=== PATIENT | female | born 1930 | race Caucasian/White ===

== ENCOUNTER 2017-06-23 08:07 | Inpatient (IN) ==
[2017-06-23] MEDS ORDERED: SODIUM CHLORIDE 0.9% 1,000 ML IV STA (08:56)
[2017-06-23 09:52] LABS: Basophils # 0.1 10*3/uL (0.0-0.2); Basophils % 0.2 % (0.0-0.8); Hematocrit 30.6 VOL% (35.7-47.0); Hemoglobin 10.6 GM/DL (12.0-16.0); Immature Granulocytes % 1.6 %; Immature Granulocytes Absolute 0.35 #; Lymphocytes # 0.8 10*3/uL (1.4-4.0); Lymphocytes % 3.4 % (21.3-54.2); Mean Corpuscular HGB Conc 34.6 GM/DL (32-36); Mean Corpuscular Hemoglobin 32 PG (27-34); Mean Corpuscular Volume 91.1 FL (87-102); Mean Platelet Volume 8.6 FL (9.6-12.0); Monocytes # 1.4 10*3/uL (0.11-0.8); Monocytes % 6.5 % (1.7-12.7); Neutrophils # 19.6 10*3/uL (1.4-7.4); Neutrophils % 88.3 % (38.7-73.9); Platelet Count 280 T/CUMM (130-400); Red Blood Count 3.36 MC/CUMM (3.8-5.5); Red Cell Distribution Width 14.9 % (9.3-17.3); White Blood Count 22.2 T/CUMM (4-12)
[2017-06-23 10:04] LABS: INR 1.1; PT Patient Result 11.8 SECS; Partial Thromboplastin Time 31.1 SECS (0-40)
[2017-06-23 10:12] LABS: Apearance,Urine Slightly Hazy (Clear); Bacteria,Urine Few /HPF (Few); Bilirubin,Urine Negative (Negative); Blood, Urine Negative (Negative); Glucose,Urine (UA) Negative (Negative); Ketones,Urine Negative (Negative); Mucus,Urine Occasional /LPF (Occasional); Nitrite,Urine Positive (Negative); Protein,Urine 30 MG/DL; RBC,Urine 2 /HPF (0-4); Squamous Epithelial Cell,Urine Occasional /HPF (0-10); Urine Color Yellow (Yellow); Urine Specific Gravity 1.008 (1.001-1.035); Urine Urobilinogen < 2.0 EU/DL (0.2-1.0); WBC,Urine 68 /HPF (0-6)
[2017-06-23 10:23] LABS: Albumin 3.4 G/DL (3.4-5.0); Bilirubin,Total 0.6 MG/DL (0.2-1.0); Calcium 8.5 MG/DL (8.5-10.1); Osmolality,Calculated 268.2 MOS/KG (273-304); Potassium 3.3 MMOL/L (3.5-5.1); Total Protein 6.7 G/DL (6.4-8.3)
[2017-06-23 11:17] LABS: Band Neutrophils 8 % (0-10); Hypochromasia 1+; Lymphocytes 5 % (20-55); Platelet Estimate Normal; Segmented Neutrophils 83 % (50-85); Total Cells Counted 100
[2017-06-23 11:18] LABS: Microcytosis 1+
[2017-06-23] MEDS ORDERED: LEVOFLOXACIN INJ 500 MG in PREMIX 1 EACH IV STA (11:23)
[2017-06-23] MEDS ORDERED: LEVOFLOXACIN INJ 100 ML IV ONE (11:26)
[2017-06-23] MEDS ORDERED: oxyCODONE/ACETAMINOPHEN 5-325 MG TABLET ONE (12:44)
[2017-06-23] MEDS ORDERED: oxyCODONE/ACETAMINOPHEN 5-325 MG TABLET PO STA (12:45)
[2017-06-23] MEDS ORDERED: ACETAMINOPHEN 325 MG TABLET PO PRN (14:08)
[2017-06-23] MEDS ORDERED: ONDANSETRON 4 MG/2 ML VIAL IV PRN (14:08)
[2017-06-23] MEDS: SODIUM CHLORIDE 0.9% 1,000 ML IV SCH ×2 (14:24→22:12)
[2017-06-23] MEDS ORDERED: ACETAMINOPHEN 650 MG SUPP RECTAL ONE ×2 (17:59→18:32)
[2017-06-23] MEDS ORDERED: POTASSIUM CHLORIDE RIDER 10 MEQ in PREMIX 1 EACH IV PRN (18:20)
[2017-06-23] MEDS ORDERED: METOPROLOL TARTRATE 5 MG/5 ML VIAL IV ONE (18:51)
[2017-06-23] MEDS ORDERED: DILTIAZEM 100 MG VIAL.ADD IV ONE (18:55)
[2017-06-23] MEDS ORDERED: SODIUM CHLORIDE 0.9% 100 ML IV ONE (18:56)
[2017-06-23] MEDS: methylPREDNISolone SOD SUC 40 MG/1 ML VIAL IV SCH (19:00)
[2017-06-23] MEDS: DILTIAZEM INJ 100 MG in SODIUM CHLORIDE 0.9% 100 ML IV SCH (19:01)
[2017-06-23] MEDS: KETOROLAC 15 MG/1 ML VIAL IV PRN (19:01)
[2017-06-23] MEDS: ALBUTEROL/IPRATROPIUM 3 ML NEB RESP TX SCH (21:15)
[2017-06-23] MEDS: DOCUSATE SODIUM 100 MG CAPSULE PO SCH (22:11)
[2017-06-23] MEDS: METOPROLOL TARTRATE 5 MG/5 ML VIAL IV SCH (22:11)
[2017-06-24] MEDS: ALBUTEROL/IPRATROPIUM 3 ML NEB RESP TX SCH ×6 (00:07→19:12)
[2017-06-24] MEDS: METOPROLOL TARTRATE 5 MG/5 ML VIAL IV SCH ×7 (01:51→22:59)
[2017-06-24] MEDS: LEVOFLOXACIN INJ 500 MG in PREMIX 1 EACH IV SCH (09:05)
[2017-06-24] MEDS: PANTOPRAZOLE 40 MG TABLET PO SCH (09:30)
[2017-06-24] MEDS: CARVEDILOL 25 MG TABLET PO SCH ×2 (09:30→17:32)
[2017-06-24] MEDS: DOCUSATE SODIUM 100 MG CAPSULE PO SCH ×2 (09:30→20:11)
[2017-06-24 09:56] LABS: Calcium 7.6 MG/DL (8.5-10.1); Osmolality,Calculated 276.1 MOS/KG (273-304); Potassium 3.2 MMOL/L (3.5-5.1)
[2017-06-24 10:02] LABS: Basophils # 0.1 10*3/uL (0.0-0.2); Basophils % 0.2 % (0.0-0.8); Hematocrit 28.5 VOL% (35.7-47.0); Hemoglobin 9.7 GM/DL (12.0-16.0); Lymphocytes % 3.3 % (21.3-54.2); Mean Corpuscular Hemoglobin 31 PG (27-34); Mean Corpuscular Volume 92.2 FL (87-102); Mean Platelet Volume 9.1 FL (9.6-12.0); Monocytes # 1.2 10*3/uL (0.11-0.8); Neutrophils # 24.9 10*3/uL (1.4-7.4); Neutrophils % 83.5 % (38.7-73.9); Platelet Count 217 T/CUMM (130-400); Red Blood Count 3.09 MC/CUMM (3.8-5.5); Red Cell Distribution Width 15.5 % (9.3-17.3); White Blood Count 29.9 T/CUMM (4-12)
[2017-06-24] MEDS: SODIUM CHLORIDE 0.9% 1,000 ML IV SCH ×2 (10:14→16:21)
[2017-06-24 10:54] LABS: Acanthocytes Few; Band Neutrophils 14 % (0-10); Hypochromasia 1+; Lymphocytes 3 % (20-55); Platelet Estimate Adequate; Segmented Neutrophils 82 % (50-85); Total Cells Counted 100
[2017-06-24] MEDS: PIPERACILLIN/TAZOBACTAM 3,375 MG in SODIUM CHLORIDE 0.9% 100 ML IV SCH ×2 (11:28→20:11)
[2017-06-24] MEDS: methylPREDNISolone SOD SUC 40 MG/1 ML VIAL IV SCH ×2 (18:35→19:31)
[2017-06-24] MEDS: DILTIAZEM INJ 100 MG in SODIUM CHLORIDE 0.9% 100 ML IV SCH (19:31)
[2017-06-24] MEDS: KETOROLAC 15 MG/1 ML VIAL IV PRN (20:11)
[2017-06-25] MEDS: ALBUTEROL/IPRATROPIUM 3 ML NEB RESP TX SCH ×8 (00:05→23:36)
[2017-06-25] MEDS ORDERED: cloNIDine 0.1 MG TABLET PO ONE (00:38)
[2017-06-25] MEDS: METOPROLOL TARTRATE 5 MG/5 ML VIAL IV SCH ×5 (02:45→17:25)
[2017-06-25] MEDS: SODIUM CHLORIDE 0.9% 1,000 ML IV SCH ×3 (03:43→14:17)
[2017-06-25] MEDS: PIPERACILLIN/TAZOBACTAM 3,375 MG in SODIUM CHLORIDE 0.9% 100 ML IV SCH (05:30)
[2017-06-25] MEDS ORDERED: POTASSIUM CHLORIDE 20 MEQ TABLET PO PRN (05:57)
[2017-06-25] MEDS ORDERED: POTASSIUM CHLORIDE 20 MEQ TABLET PO ONE (05:57)
[2017-06-25] MEDS ORDERED: hydrALAZINE 20 MG/1 ML VIAL IV PRN (06:03)
[2017-06-25] MEDS: methylPREDNISolone SOD SUC 40 MG/1 ML VIAL IV SCH ×2 (06:08→17:35)
[2017-06-25 06:51] LABS: Basophils % 0.1 % (0.0-0.8); Hematocrit 27.1 VOL% (35.7-47.0); Hemoglobin 9.1 GM/DL (12.0-16.0); Immature Granulocytes % 2.3 %; Immature Granulocytes Absolute 0.42 #; Lymphocytes # 0.8 10*3/uL (1.4-4.0); Lymphocytes % 4.5 % (21.3-54.2); Mean Corpuscular HGB Conc 33.6 GM/DL (32-36); Mean Corpuscular Hemoglobin 31 PG (27-34); Mean Corpuscular Volume 91.2 FL (87-102); Mean Platelet Volume 9.7 FL (9.6-12.0); Monocytes # 0.4 10*3/uL (0.11-0.8); Monocytes % 2.4 % (1.7-12.7); Neutrophils # 16.4 10*3/uL (1.4-7.4); Neutrophils % 90.7 % (38.7-73.9); Platelet Count 196 T/CUMM (130-400); Red Blood Count 2.97 MC/CUMM (3.8-5.5); Red Cell Distribution Width 15.8 % (9.3-17.3)
[2017-06-25 07:21] LABS: Albumin 2.9 G/DL (3.4-5.0); Bilirubin,Total 0.7 MG/DL (0.2-1.0); Calcium 8.3 MG/DL (8.5-10.1); Magnesium 2.3 MG/DL (1.8-2.4); Potassium 3.3 MMOL/L (3.5-5.1); Total Protein 6.1 G/DL (6.4-8.3)
[2017-06-25 07:42] LABS: Band Neutrophils 6 % (0-10); Lymphocytes 2 % (20-55); Segmented Neutrophils 87 % (50-85); Total Cells Counted 100
[2017-06-25 07:43] LABS: Acanthocytes Few; Hypochromasia 1+; Microcytosis 1+; Ovalocytes Slight; Platelet Estimate Adequate
[2017-06-25] MEDS: DOCUSATE SODIUM 100 MG CAPSULE PO SCH ×2 (08:28→23:02)
[2017-06-25] MEDS: hydrALAZINE 25 MG TABLET PO SCH ×4 (08:28→23:03)
[2017-06-25] MEDS: CARVEDILOL 25 MG TABLET PO SCH ×2 (08:28→17:25)
[2017-06-25] MEDS: PANTOPRAZOLE 40 MG TABLET PO SCH (08:28)
[2017-06-25] MEDS: LEVOFLOXACIN INJ 500 MG in PREMIX 1 EACH IV SCH (08:29)
[2017-06-25] MEDS ORDERED: LOSARTAN 25 MG TABLET PO SCH (09:00)
[2017-06-25] MEDS ORDERED: LEVOFLOXACIN INJ 750 MG in PREMIX 1 EACH IV SCH (11:30)
[2017-06-25 12:01] LABS: 25 Hydroxy Vitamin D Total 31.8 NG/ML
[2017-06-25] MEDS: ESTRADIOL 1 MG TABLET PO SCH (12:11)
[2017-06-25] MEDS: traZODone 50 MG TABLET PO SCH (23:02)
[2017-06-25] MEDS: cloNIDine 0.1 MG TABLET PO SCH (23:02)
[2017-06-25] MEDS: ZINC OXIDE PASTE 113 GM TUBE TOP SCH (23:03)
[2017-06-26] MEDS: ALBUTEROL/IPRATROPIUM 3 ML NEB RESP TX SCH ×5 (02:13→20:20)
[2017-06-26 02:26] LABS: Basophils % 0.1 % (0.0-0.8); Hematocrit 27.1 VOL% (35.7-47.0); Hemoglobin 9.4 GM/DL (12.0-16.0); Immature Granulocytes % 2.3 %; Immature Granulocytes Absolute 0.37 #; Lymphocytes # 0.9 10*3/uL (1.4-4.0); Lymphocytes % 5.3 % (21.3-54.2); Mean Corpuscular HGB Conc 34.7 GM/DL (32-36); Mean Corpuscular Hemoglobin 31 PG (27-34); Mean Corpuscular Volume 89.4 FL (87-102); Mean Platelet Volume 9.9 FL (9.6-12.0); Monocytes # 0.3 10*3/uL (0.11-0.8); Neutrophils # 14.8 10*3/uL (1.4-7.4); Neutrophils % 90.3 % (38.7-73.9); Platelet Count 252 T/CUMM (130-400); Red Blood Count 3.03 MC/CUMM (3.8-5.5); Red Cell Distribution Width 15.7 % (9.3-17.3); White Blood Count 16.4 T/CUMM (4-12)
[2017-06-26 02:53] LABS: Calcium 8.4 MG/DL (8.5-10.1); Potassium 3.5 MMOL/L (3.5-5.1)
[2017-06-26 02:56] LABS: Band Neutrophils 3 % (0-10); Lymphocytes 5 % (20-55); Segmented Neutrophils 91 % (50-85)
[2017-06-26 02:58] LABS: Anisocytosis 1+; Microcytosis 1+; Ovalocytes 1+; Platelet Estimate Normal
[2017-06-26 02:59] LABS: Total Cells Counted 100
[2017-06-26] MEDS: METOPROLOL TARTRATE 5 MG/5 ML VIAL IV SCH ×2 (03:05→07:51)
[2017-06-26] MEDS: SODIUM CHLORIDE 0.9% 1,000 ML IV SCH ×3 (05:30→18:06)
[2017-06-26] MEDS: methylPREDNISolone SOD SUC 40 MG/1 ML VIAL IV SCH ×2 (07:52→18:05)
[2017-06-26] MEDS ORDERED: LEVOFLOXACIN INJ 750 MG in PREMIX 1 EACH IV SCH (09:00)
[2017-06-26] MEDS: ESTRADIOL 1 MG TABLET PO SCH (09:37)
[2017-06-26] MEDS: PANTOPRAZOLE 40 MG TABLET PO SCH (09:38)
[2017-06-26] MEDS: CARVEDILOL 25 MG TABLET PO SCH ×2 (09:38→18:05)
[2017-06-26] MEDS: ZINC OXIDE PASTE 113 GM TUBE TOP SCH ×2 (09:38→22:01)
[2017-06-26] MEDS: hydrALAZINE 25 MG TABLET PO SCH ×3 (09:38→22:01)
[2017-06-26] MEDS: DOCUSATE SODIUM 100 MG CAPSULE PO SCH ×2 (09:38→22:01)
[2017-06-26] MEDS: POTASSIUM CHLORIDE 10 MEQ TABLET PO SCH (09:42)
[2017-06-26] MEDS ORDERED: GABAPENTIN 100 MG CAPSULE PO ONE (09:53)
[2017-06-26] MEDS ORDERED: traMADol 50 MG TABLET PO ONE (09:54)
[2017-06-26] MEDS: cloNIDine 0.1 MG TABLET PO SCH (22:01)
[2017-06-26] MEDS: traZODone 50 MG TABLET PO SCH (22:01)
[2017-06-26] MEDS: oxyCODONE/ACETAMINOPHEN 5-325 MG TABLET PO PRN (22:02)
[2017-06-27] MEDS: ALBUTEROL/IPRATROPIUM 3 ML NEB RESP TX SCH ×4 (00:04→13:15)
[2017-06-27] MEDS: SODIUM CHLORIDE 0.9% 1,000 ML IV SCH ×2 (02:32→09:26)
[2017-06-27] MEDS: methylPREDNISolone SOD SUC 40 MG/1 ML VIAL IV SCH (05:31)
[2017-06-27 06:48] LABS: Basophils % 0.1 % (0.0-0.8); Eosinophils # 0.1 10*3/uL (0.0-0.87); Eosinophils % 0.5 % (0.00-10.9); Hematocrit 25.6 VOL% (35.7-47.0); Hemoglobin 8.7 GM/DL (12.0-16.0); Immature Granulocytes % 1.3 %; Immature Granulocytes Absolute 0.12 #; Lymphocytes # 1.5 10*3/uL (1.4-4.0); Mean Corpuscular Hemoglobin 31 PG (27-34); Mean Corpuscular Volume 91.4 FL (87-102); Mean Platelet Volume 9.5 FL (9.6-12.0); Monocytes # 0.5 10*3/uL (0.11-0.8); Monocytes % 5.9 % (1.7-12.7); NRBC # 0.02 10*3/uL; Neutrophils # 6.9 10*3/uL (1.4-7.4); Neutrophils % 76.2 % (38.7-73.9); Platelet Count 253 T/CUMM (130-400); White Blood Count 9.1 T/CUMM (4-12)
[2017-06-27 07:09] LABS: Calcium 8.1 MG/DL (8.5-10.1); Osmolality,Calculated 275.7 MOS/KG (273-304); Potassium 3.5 MMOL/L (3.5-5.1)
[2017-06-27] MEDS ORDERED: LEVOFLOXACIN 750 MG TABLET PO SCH (09:00)
[2017-06-27] MEDS ORDERED: ZINC OXIDE 16% PASTE 57 GM TUBE TOP PRN (09:13)
[2017-06-27] MEDS: oxyCODONE/ACETAMINOPHEN 5-325 MG TABLET PO PRN (09:19)
[2017-06-27] MEDS: ESTRADIOL 1 MG TABLET PO SCH (09:21)
[2017-06-27] MEDS: CARVEDILOL 25 MG TABLET PO SCH (09:23)
[2017-06-27] MEDS: DOCUSATE SODIUM 100 MG CAPSULE PO SCH (09:23)
[2017-06-27] MEDS: POTASSIUM CHLORIDE 10 MEQ TABLET PO SCH (09:23)
[2017-06-27] MEDS: hydrALAZINE 25 MG TABLET PO SCH (09:23)
[2017-06-27] MEDS: PANTOPRAZOLE 40 MG TABLET PO SCH (09:23)
[2017-06-27] MEDS: ZINC OXIDE PASTE 113 GM TUBE TOP SCH (09:24)
[2017-06-27] MEDS ORDERED: GABAPENTIN 100 MG CAPSULE PO SCH (11:30)
[2017-06-27 11:47] VITALS: BP 143/76
== END 2017-06-27 14:45 | disposition home health service (06) | DRG 872 ==
LOC: EDBD → EDUNIT# → N.ED 08:07 → N.EDINP 12:44 → N.5E 14:06 → N.ICU 18:49 → N.5E 06-25 15:20
PROVIDERS: ADMIT Internal Medicine; ATTEND Internal Medicine

== ENCOUNTER 2018-01-27 07:08 | Inpatient (IN) ==
[2018-01-27] MEDS ORDERED: SODIUM CHLORIDE 0.9% 1,000 ML IV STA (07:56)
[2018-01-27] MEDS ORDERED: LEVOFLOXACIN 750 MG TABLET PO STA (07:56)
[2018-01-27 08:48] LABS: Basophils % 0.1 % (0.0-0.8); Hematocrit 31.7 VOL% (35.7-47.0); Immature Granulocytes % 0.7 %; Immature Granulocytes Absolute 0.07 #; Lymphocytes # 0.4 10*3/uL (1.4-4.0); Lymphocytes % 3.6 % (21.3-54.2); Mean Corpuscular HGB Conc 34.7 GM/DL (32-36); Mean Corpuscular Hemoglobin 32 PG (27-34); Mean Corpuscular Volume 91.6 FL (87-102); Mean Platelet Volume 8.7 FL (9.6-12.0); Monocytes # 0.5 10*3/uL (0.11-0.8); Monocytes % 4.8 % (1.7-12.7); Neutrophils # 9.4 10*3/uL (1.4-7.4); Neutrophils % 90.8 % (38.7-73.9); Platelet Count 289 T/CUMM (130-400); Red Blood Count 3.46 MC/CUMM (3.8-5.5); Red Cell Distribution Width 12.9 % (9.3-17.3); White Blood Count 10.4 T/CUMM (4-12)
[2018-01-27 09:01] LABS: Apearance,Urine Slightly Hazy (Clear); Bacteria,Urine Many /HPF (Few); Bilirubin,Urine Negative (Negative); Blood, Urine Moderate mg/dL (Negative); Glucose,Urine (UA) Negative (Negative); Ketones,Urine 20 mg/dL (Negative); Mucus,Urine Occasional /LPF (Occasional); Nitrite,Urine Negative (Negative); Protein,Urine 100 MG/DL; RBC,Urine 1 /HPF (0-4); Squamous Epithelial Cell,Urine Occasional /HPF (0-10); Urine Color Yellow (Yellow); Urine Specific Gravity 1.011 (1.001-1.035); Urine Urobilinogen < 2.0 EU/DL (0.2-1.0); WBC,Urine 13 /HPF (0-6)
[2018-01-27 09:07] LABS: Band Neutrophils 1 % (0-10); Hypochromasia 1+; Lymphocytes 1 % (20-55); Ovalocytes Slight; Platelet Estimate Adequate; Segmented Neutrophils 91 % (50-85); Total Cells Counted 100
[2018-01-27 09:08] LABS: Albumin 3.7 G/DL (3.4-5.0); Bilirubin,Total 0.5 MG/DL (0.2-1.0); Calcium 8.1 MG/DL (8.5-10.1); Lactic Acid 1.2 MMOL/L (0.4-2.0); Osmolality,Calculated 259.9 MOS/KG (273-304); Potassium 3.7 MMOL/L (3.5-5.1); Total Protein 7.4 G/DL (6.4-8.3)
[2018-01-27 09:08] LABS: Microcytosis Slight
[2018-01-27] MEDS ORDERED: ACETAMINOPHEN 325 MG TABLET PO ONE (10:18)
[2018-01-27] MEDS ORDERED: ACETAMINOPHEN 325 MG TABLET ONE (10:19)
[2018-01-27] MEDS ORDERED: ACETAMINOPHEN 325 MG TABLET PO PRN (12:51)
[2018-01-27] MEDS ORDERED: SODIUM CHLORIDE 0.9% 1,000 ML IV SCH (13:00)
[2018-01-27] MEDS ORDERED: cefTRIAXone 500 MG in SYRINGE 1 EACH IV SCH (21:00)
[2018-01-27] MEDS: DOCUSATE SODIUM 100 MG CAPSULE PO SCH (21:11)
[2018-01-27] MEDS: SODIUM CHLORIDE 0.9% 1,000 ML IV SCH (21:12)
[2018-01-27] MEDS ORDERED: FUROSEMIDE 20 MG/2 ML VIAL IV ONE (22:01)
[2018-01-27] MEDS ORDERED: traZODone 50 MG TABLET PO SCH (22:15)
[2018-01-27] MEDS ORDERED: CARVEDILOL 12.5 MG TABLET PO SCH (22:30)
[2018-01-27] MEDS ORDERED: KETOROLAC 15 MG/1 ML VIAL IV ONE (22:44)
[2018-01-27] MEDS: CALCIUM (CITRATE) 200 MG TABLET PO SCH (23:56)
[2018-01-27] MEDS: busPIRone 10 MG TABLET PO SCH (23:56)
[2018-01-27] MEDS: POTASSIUM CHLORIDE 20 MEQ TABLET PO SCH (23:57)
[2018-01-27] MEDS: PREGABALIN 75 MG CAPSULE PO SCH (23:57)
[2018-01-28] MEDS: SODIUM CHLORIDE 0.9% 1,000 ML IV SCH ×2 (06:07→17:49)
[2018-01-28 07:00] LABS: Alanine Aminotransferase 37 U/L (13-56); Albumin 2.9 G/DL (3.4-5.0); Alkaline Phosphatase 62 U/L (45-117); Aspartate Amino Transferase 68 U/L (0-37); Bilirubin,Total < 0.39 MG/DL (0.2-1.0); Blood Urea Nitrogen 9 MG/DL (7-18); Calcium 8.3 MG/DL (8.5-10.1); Glucose 97 MG/DL (74-106); Osmolality,Calculated 253.2 MOS/KG (273-304); Potassium 3.2 MMOL/L (3.5-5.1); Sodium 127 MMOL/L (136-145); Total Protein 6.8 G/DL (6.4-8.3)
[2018-01-28] MEDS ORDERED: methylPREDNISolone SOD SUC 40 MG/1 ML VIAL IV ONE (07:00)
[2018-01-28] MEDS ORDERED: hydrALAZINE 25 MG TABLET PO SCH (08:00)
[2018-01-28] MEDS: PREGABALIN 75 MG CAPSULE PO SCH ×2 (10:25→20:40)
[2018-01-28] MEDS: ESTRADIOL 1 MG TABLET PO SCH (10:25)
[2018-01-28] MEDS: ASPIRIN EC 81 MG TABLET PO SCH (10:25)
[2018-01-28] MEDS: CALCIUM (CITRATE) 200 MG TABLET PO SCH ×2 (10:25→20:39)
[2018-01-28] MEDS: POTASSIUM CHLORIDE 20 MEQ TABLET PO SCH ×2 (10:25→20:40)
[2018-01-28] MEDS: DOCUSATE SODIUM 100 MG CAPSULE PO SCH ×2 (10:25→20:40)
[2018-01-28] MEDS: FUROSEMIDE 20 MG/2 ML VIAL IV SCH (12:10)
[2018-01-28] MEDS: cefTRIAXone 1,000 MG in SYRINGE 1 EACH IV SCH (12:10)
[2018-01-28] MEDS ORDERED: POTASSIUM CHLORIDE 20 MEQ TABLET PO PRN (14:55)
[2018-01-28] MEDS ORDERED: POTASSIUM CHLORIDE 20 MEQ TABLET PO ONE (14:55)
[2018-01-28 15:54] LABS: Calcium 8.4 MG/DL (8.5-10.1); Osmolality,Calculated 259.9 MOS/KG (273-304); Potassium 3.5 MMOL/L (3.5-5.1)
[2018-01-28] MEDS ORDERED: CARVEDILOL 3.125 MG TABLET PO ONE (17:30)
[2018-01-28] MEDS: ALBUTEROL/IPRATROPIUM 3 ML NEB RESP TX SCH (19:54)
[2018-01-28] MEDS: POLYETHYLENE GLYCOL POWDER 17 GM PACK PO SCH (20:39)
[2018-01-28] MEDS: busPIRone 10 MG TABLET PO SCH (20:39)
[2018-01-28] MEDS: CARVEDILOL 3.125 MG TABLET PO SCH (20:39)
[2018-01-28] MEDS ORDERED: cloNIDine 0.1 MG TABLET PO SCH (21:00)
[2018-01-28] MEDS ORDERED: FUROSEMIDE 20 MG/2 ML VIAL IV ONE (22:14)
[2018-01-29] MEDS: ALBUTEROL/IPRATROPIUM 3 ML NEB RESP TX SCH ×4 (00:47→19:50)
[2018-01-29] MEDS: SODIUM CHLORIDE 0.9% 1,000 ML IV SCH ×2 (04:45→21:25)
[2018-01-29 09:27] LABS: Calcium 8.9 MG/DL (8.5-10.1); Osmolality,Calculated 270.2 MOS/KG (273-304)
[2018-01-29] MEDS: cefTRIAXone 1,000 MG in SYRINGE 1 EACH IV SCH (10:06)
[2018-01-29] MEDS: FUROSEMIDE 20 MG/2 ML VIAL IV SCH (10:06)
[2018-01-29] MEDS: PREGABALIN 75 MG CAPSULE PO SCH ×2 (10:07→21:26)
[2018-01-29] MEDS: CALCIUM (CITRATE) 200 MG TABLET PO SCH ×2 (10:07→21:26)
[2018-01-29] MEDS: ASPIRIN EC 81 MG TABLET PO SCH (10:07)
[2018-01-29] MEDS: POLYETHYLENE GLYCOL POWDER 17 GM PACK PO SCH (10:07)
[2018-01-29] MEDS: CARVEDILOL 3.125 MG TABLET PO SCH ×2 (10:08→21:26)
[2018-01-29] MEDS: ESTRADIOL 1 MG TABLET PO SCH (10:08)
[2018-01-29] MEDS: POTASSIUM CHLORIDE 20 MEQ TABLET PO SCH ×2 (10:08→21:26)
[2018-01-29] MEDS: DOCUSATE SODIUM 100 MG CAPSULE PO SCH ×2 (10:08→21:26)
[2018-01-29] MEDS: busPIRone 10 MG TABLET PO SCH (21:26)
[2018-01-30] MEDS: ALBUTEROL/IPRATROPIUM 3 ML NEB RESP TX SCH ×4 (01:13→20:20)
[2018-01-30 05:49] LABS: Calcium 8.9 MG/DL (8.5-10.1); Osmolality,Calculated 263.7 MOS/KG (273-304); Potassium 3.8 MMOL/L (3.5-5.1)
[2018-01-30] MEDS: cefTRIAXone 1,000 MG in SYRINGE 1 EACH IV SCH (11:30)
[2018-01-30] MEDS: CALCIUM (CITRATE) 200 MG TABLET PO SCH ×2 (11:31→23:01)
[2018-01-30] MEDS: FUROSEMIDE 20 MG/2 ML VIAL IV SCH (11:31)
[2018-01-30] MEDS: ASPIRIN EC 81 MG TABLET PO SCH (11:32)
[2018-01-30] MEDS: ESTRADIOL 1 MG TABLET PO SCH (11:32)
[2018-01-30] MEDS: POTASSIUM CHLORIDE 20 MEQ TABLET PO SCH ×2 (11:32→23:01)
[2018-01-30] MEDS: CARVEDILOL 3.125 MG TABLET PO SCH ×2 (11:32→23:01)
[2018-01-30] MEDS: POLYETHYLENE GLYCOL POWDER 17 GM PACK PO SCH ×2 (11:32→12:49)
[2018-01-30] MEDS: PREGABALIN 75 MG CAPSULE PO SCH (11:32)
[2018-01-30] MEDS: DOCUSATE SODIUM 100 MG CAPSULE PO SCH ×2 (11:33→23:01)
[2018-01-30] MEDS ORDERED: FUROSEMIDE 20 MG/2 ML VIAL IV ONE (12:07)
[2018-01-30] MEDS: traMADol 50 MG TABLET PO PRN (12:48)
[2018-01-30] MEDS ORDERED: LIDOCAINE 2% TOP JELLY 20 ML VIAL INTRAURETH ONE (13:01)
[2018-01-30] MEDS: LIDOCAINE 5% PATCH TRANSDERM SCH (13:05)
[2018-01-30] MEDS: SODIUM CHLORIDE 0.9% 1,000 ML IV SCH (15:13)
[2018-01-30] MEDS: hydrALAZINE 25 MG TABLET PO SCH ×2 (17:07→23:01)
[2018-01-30] MEDS: busPIRone 10 MG TABLET PO SCH (23:01)
[2018-01-30] MEDS: PREGABALIN 100 MG CAPSULE PO SCH (23:01)
[2018-01-30] MEDS: METHENAMINE HIPPURATE 1 GM TABLET PO SCH (23:01)
[2018-01-31] MEDS: ALBUTEROL/IPRATROPIUM 3 ML NEB RESP TX SCH ×4 (01:00→19:38)
[2018-01-31] MEDS: SODIUM CHLORIDE 0.9% 1,000 ML IV SCH ×3 (04:37→19:17)
[2018-01-31 08:09] LABS: Basophils % 0.6 % (0.0-0.8); Eosinophils # 0.2 10*3/uL (0.0-0.87); Eosinophils % 3.9 % (0.00-10.9); Hematocrit 34.2 VOL% (35.7-47.0); Hemoglobin 11.4 GM/DL (12.0-16.0); Immature Granulocytes % 0.8 %; Immature Granulocytes Absolute 0.04 #; Lymphocytes % 20.1 % (21.3-54.2); Mean Corpuscular HGB Conc 33.3 GM/DL (32-36); Mean Corpuscular Hemoglobin 31 PG (27-34); Mean Corpuscular Volume 92.7 FL (87-102); Mean Platelet Volume 9.1 FL (9.6-12.0); Monocytes # 0.5 10*3/uL (0.11-0.8); Monocytes % 10.2 % (1.7-12.7); Neutrophils # 3.3 10*3/uL (1.4-7.4); Neutrophils % 64.4 % (38.7-73.9); Platelet Count 338 T/CUMM (130-400); Red Blood Count 3.69 MC/CUMM (3.8-5.5); Red Cell Distribution Width 12.8 % (9.3-17.3); White Blood Count 5.1 T/CUMM (4-12)
[2018-01-31 08:19] LABS: Calcium 9.1 MG/DL (8.5-10.1); Osmolality,Calculated 266.4 MOS/KG (273-304)
[2018-01-31] MEDS: traMADol 50 MG TABLET PO PRN (09:10)
[2018-01-31] MEDS: METHENAMINE HIPPURATE 1 GM TABLET PO SCH ×2 (09:12→21:08)
[2018-01-31] MEDS: POTASSIUM CHLORIDE 20 MEQ TABLET PO SCH ×2 (09:12→21:09)
[2018-01-31] MEDS: ESTRADIOL 1 MG TABLET PO SCH (09:12)
[2018-01-31] MEDS: ASPIRIN EC 81 MG TABLET PO SCH (09:13)
[2018-01-31] MEDS: CARVEDILOL 3.125 MG TABLET PO SCH ×2 (09:13→21:08)
[2018-01-31] MEDS: DOCUSATE SODIUM 100 MG CAPSULE PO SCH ×2 (09:13→21:08)
[2018-01-31] MEDS: PREGABALIN 100 MG CAPSULE PO SCH ×2 (09:13→21:09)
[2018-01-31] MEDS: hydrALAZINE 25 MG TABLET PO SCH ×3 (09:13→21:08)
[2018-01-31] MEDS: CALCIUM (CITRATE) 200 MG TABLET PO SCH ×2 (09:13→21:08)
[2018-01-31] MEDS: cefTRIAXone 1,000 MG in SYRINGE 1 EACH IV SCH (09:14)
[2018-01-31] MEDS: FUROSEMIDE 20 MG/2 ML VIAL IV SCH (09:14)
[2018-01-31] MEDS: LIDOCAINE 5% PATCH TRANSDERM SCH (09:15)
[2018-01-31] MEDS: POLYETHYLENE GLYCOL POWDER 17 GM PACK PO SCH (09:20)
[2018-01-31] MEDS: oxyCODONE/ACETAMINOPHEN 5-325 MG TABLET PO PRN ×2 (14:55→21:08)
[2018-01-31] MEDS: busPIRone 10 MG TABLET PO SCH (21:08)
[2018-02-01] MEDS: ALBUTEROL/IPRATROPIUM 3 ML NEB RESP TX SCH ×4 (00:30→19:46)
[2018-02-01 05:41] LABS: Basophils # 0.1 10*3/uL (0.0-0.2); Basophils % 0.8 % (0.0-0.8); Eosinophils # 0.3 10*3/uL (0.0-0.87); Eosinophils % 4.7 % (0.00-10.9); Hematocrit 32.9 VOL% (35.7-47.0); Hemoglobin 11.4 GM/DL (12.0-16.0); Immature Granulocytes % 0.8 %; Immature Granulocytes Absolute 0.05 #; Lymphocytes # 1.2 10*3/uL (1.4-4.0); Lymphocytes % 20.9 % (21.3-54.2); Mean Corpuscular HGB Conc 34.7 GM/DL (32-36); Mean Corpuscular Hemoglobin 32 PG (27-34); Mean Corpuscular Volume 91.1 FL (87-102); Mean Platelet Volume 8.9 FL (9.6-12.0); Monocytes # 0.6 10*3/uL (0.11-0.8); Monocytes % 9.6 % (1.7-12.7); Neutrophils # 3.7 10*3/uL (1.4-7.4); Neutrophils % 63.2 % (38.7-73.9); Platelet Count 351 T/CUMM (130-400); Red Blood Count 3.61 MC/CUMM (3.8-5.5); Red Cell Distribution Width 13.1 % (9.3-17.3); White Blood Count 5.9 T/CUMM (4-12)
[2018-02-01 06:18] LABS: Calcium 9.1 MG/DL (8.5-10.1); Osmolality,Calculated 268.1 MOS/KG (273-304)
[2018-02-01 06:23] LABS: Band Neutrophils 2 % (0-10); Eosinophils 5 % (0-10); Hypochromasia Slight; Lymphocytes 15 % (20-55); Segmented Neutrophils 68 % (50-85); Total Cells Counted 100
[2018-02-01 06:24] LABS: Microcytosis 1+; Platelet Estimate Normal
[2018-02-01] MEDS: oxyCODONE/ACETAMINOPHEN 5-325 MG TABLET PO PRN ×2 (08:10→20:53)
[2018-02-01] MEDS: POLYETHYLENE GLYCOL POWDER 17 GM PACK PO SCH (10:21)
[2018-02-01] MEDS: FUROSEMIDE 20 MG/2 ML VIAL IV SCH (10:21)
[2018-02-01] MEDS: CARVEDILOL 3.125 MG TABLET PO SCH ×2 (10:22→20:52)
[2018-02-01] MEDS: ASPIRIN EC 81 MG TABLET PO SCH (10:22)
[2018-02-01] MEDS: hydrALAZINE 25 MG TABLET PO SCH ×3 (10:22→20:53)
[2018-02-01] MEDS: cefTRIAXone 1,000 MG in SYRINGE 1 EACH IV SCH (10:22)
[2018-02-01] MEDS: CALCIUM (CITRATE) 200 MG TABLET PO SCH ×2 (10:22→20:52)
[2018-02-01] MEDS: DOCUSATE SODIUM 100 MG CAPSULE PO SCH ×2 (10:23→20:52)
[2018-02-01] MEDS: POTASSIUM CHLORIDE 20 MEQ TABLET PO SCH ×2 (10:23→20:52)
[2018-02-01] MEDS: ESTRADIOL 1 MG TABLET PO SCH (10:23)
[2018-02-01] MEDS: METHENAMINE HIPPURATE 1 GM TABLET PO SCH ×2 (10:23→20:52)
[2018-02-01] MEDS: PREGABALIN 100 MG CAPSULE PO SCH ×2 (10:23→20:53)
[2018-02-01] MEDS: SODIUM CHLORIDE 0.9% 1,000 ML IV SCH ×2 (10:25→13:44)
[2018-02-01] MEDS: LIDOCAINE 5% PATCH TRANSDERM SCH (10:26)
[2018-02-01] MEDS: traMADol 50 MG TABLET PO PRN (16:12)
[2018-02-01] MEDS: busPIRone 10 MG TABLET PO SCH (20:52)
[2018-02-02] MEDS: ALBUTEROL/IPRATROPIUM 3 ML NEB RESP TX SCH ×3 (00:20→14:10)
[2018-02-02 07:31] LABS: Osmolality,Calculated 269.1 MOS/KG (273-304)
[2018-02-02] MEDS: POLYETHYLENE GLYCOL POWDER 17 GM PACK PO SCH (09:28)
[2018-02-02] MEDS: ESTRADIOL 1 MG TABLET PO SCH (09:28)
[2018-02-02] MEDS: METHENAMINE HIPPURATE 1 GM TABLET PO SCH (09:28)
[2018-02-02] MEDS: SODIUM CHLORIDE 0.9% 1,000 ML IV SCH ×2 (09:28→17:05)
[2018-02-02] MEDS: POTASSIUM CHLORIDE 20 MEQ TABLET PO SCH (09:29)
[2018-02-02] MEDS: CARVEDILOL 3.125 MG TABLET PO SCH (09:29)
[2018-02-02] MEDS: ASPIRIN EC 81 MG TABLET PO SCH (09:29)
[2018-02-02] MEDS: PREGABALIN 100 MG CAPSULE PO SCH (09:29)
[2018-02-02] MEDS: CALCIUM (CITRATE) 200 MG TABLET PO SCH (09:29)
[2018-02-02] MEDS: hydrALAZINE 25 MG TABLET PO SCH ×2 (09:30→17:05)
[2018-02-02] MEDS: FUROSEMIDE 20 MG/2 ML VIAL IV SCH (09:30)
[2018-02-02] MEDS: DOCUSATE SODIUM 100 MG CAPSULE PO SCH (09:30)
[2018-02-02] MEDS: LIDOCAINE 5% PATCH TRANSDERM SCH (09:31)
[2018-02-02] MEDS: traMADol 50 MG TABLET PO PRN (09:35)
[2018-02-02] MEDS: cefTRIAXone 1,000 MG in SYRINGE 1 EACH IV SCH (09:36)
[2018-02-02] MEDS: oxyCODONE/ACETAMINOPHEN 5-325 MG TABLET PO PRN (10:30)
[2018-02-02 16:44] VITALS: BP 116/58
== END 2018-02-02 17:30 | disposition home health service (06) | DRG 872 ==
LOC: EDBD → EDUNIT# → N.ED 07:08 → N.EDINP 07:08 → N.5E 18:00
PROVIDERS: ADMIT Internal Medicine; ATTEND Internal Medicine

== ENCOUNTER 2019-12-04 21:27 | Inpatient (IN) ==
[2019-12-04 22:33] LABS: Albumin 3.1 G/DL (3.4-5.0); Bilirubin,Total 0.4 MG/DL (0.2-1.0); Calcium 8.6 MG/DL (8.5-10.1); Osmolality,Calculated 279.7 MOS/KG (273-304); Total Protein 7.1 G/DL (6.4-8.3)
[2019-12-04 22:34] LABS: Basophils % 0.7 % (0.0-0.8); Eosinophils # 0.2 10*3/uL (0.0-0.87); Eosinophils % 2.9 % (0.00-10.9); Hematocrit 40.1 VOL% (35.7-47.0); Hemoglobin 12.9 GM/DL (12.0-16.0); Immature Granulocytes % 0.5 %; Immature Granulocytes Absolute 0.03 #; Lymphocytes # 0.9 10*3/uL (1.4-4.0); Lymphocytes % 15.9 % (21.3-54.2); Mean Corpuscular HGB Conc 32.2 GM/DL (32-36); Mean Corpuscular Volume 94.4 FL (87-102); Mean Platelet Volume 10.3 FL (9.6-12.0); Monocytes % 8.1 % (1.7-12.7); Neutrophils % 71.9 % (38.7-73.9); Platelet Count 284 T/CUMM (130-400); Red Blood Count 4.25 MC/CUMM (3.8-5.5); Red Cell Distribution Width 14.2 % (9.3-17.3); White Blood Count 5.8 T/CUMM (4-12)
[2019-12-04] MEDS ORDERED: ALBUTEROL/IPRATROPIUM 3 ML NEB RESP TX STA (22:34)
[2019-12-04] MEDS ORDERED: methylPREDNISolone SOD SUC 125 MG/2 ML VIAL IV STA (22:34)
[2019-12-04] MEDS ORDERED: LEVOFLOXACIN INJ 500 MG in PREMIX 1 EACH IV STA (22:40)
[2019-12-04 22:44] LABS: PT Patient Result 10.6 SECS (9.8-11.9)
[2019-12-04 23:33] LABS: Apearance,Urine Slightly Hazy (Clear); Bacteria,Urine Occasional /HPF (Few); Bilirubin,Urine Negative (Negative); Blood, Urine Negative (Negative); Glucose,Urine (UA) Negative (Negative); Hyaline Casts,Urine 16 /LPF (0-3); Ketones,Urine Negative (Negative); Mucus,Urine Occasional /LPF (Occasional); Nitrite,Urine Positive (Negative); Protein,Urine Negative; RBC,Urine 4 /HPF (0-4); Red Blood Cell Casts,Urine 1 /LPF (<1); Renal Epithelial Cells,Urine Occasional /HPF (<1); Squamous Epithelial Cell,Urine Occasional /HPF (0-10); Urine Color Yellow (Yellow); Urine Specific Gravity 1.012 (1.001-1.035); Urine Urobilinogen < 2.0 EU/DL (0.2-1.0); WBC,Urine 261 /HPF (0-6)
[2019-12-04] MEDS ORDERED: ACETAMINOPHEN 325 MG TABLET PO PRN (23:44)
[2019-12-04] MEDS ORDERED: ONDANSETRON 4 MG/2 ML VIAL IV PRN (23:44)
[2019-12-05] MEDS: SODIUM CHLORIDE 0.9% 1,000 ML IV SCH ×4 (02:30→23:15)
[2019-12-05] MEDS ORDERED: ALBUTEROL/IPRATROPIUM 3 ML NEB RESP TX SCH (03:00)
[2019-12-05] MEDS ORDERED: oxyCODONE/ACETAMINOPHEN 5-325 MG TABLET PO PRN (06:24)
[2019-12-05 06:56] LABS: Basophils % 0.1 % (0.0-0.8); Hematocrit 37.2 VOL% (35.7-47.0); Hemoglobin 12.2 GM/DL (12.0-16.0); Immature Granulocytes % 0.8 %; Immature Granulocytes Absolute 0.12 #; Lymphocytes # 0.4 10*3/uL (1.4-4.0); Lymphocytes % 2.9 % (21.3-54.2); Mean Corpuscular HGB Conc 32.8 GM/DL (32-36); Mean Corpuscular Volume 92.1 FL (87-102); Mean Platelet Volume 9.9 FL (9.6-12.0); Monocytes % 1.5 % (1.7-12.7); Neutrophils % 94.7 % (38.7-73.9); Platelet Count 318 T/CUMM (130-400); Red Blood Count 4.04 MC/CUMM (3.8-5.5); Red Cell Distribution Width 14.2 % (9.3-17.3); White Blood Count 14.3 T/CUMM (4-12)
[2019-12-05] MEDS: ALBUTEROL/IPRATROPIUM 3 ML NEB RESP TX SCH ×3 (07:00→19:06)
[2019-12-05] MEDS ORDERED: methylPREDNISolone SOD SUC 40 MG/1 ML VIAL IV SCH (07:00)
[2019-12-05 07:22] LABS: Albumin 2.8 G/DL (3.4-5.0); Bilirubin,Total 0.6 MG/DL (0.2-1.0); Calcium 8.8 MG/DL (8.5-10.1); Osmolality,Calculated 278.7 MOS/KG (273-304); Total Protein 6.8 G/DL (6.4-8.3)
[2019-12-05 07:33] LABS: Band Neutrophils 7 % (0-10); Hypochromasia 1+; Lymphocytes 2 % (20-55); Segmented Neutrophils 90 % (50-85); Total Cells Counted 100
[2019-12-05 07:34] LABS: Microcytosis 1+; Platelet Estimate Normal
[2019-12-05] MEDS: POLYETHYLENE GLYCOL POWDER 17 GM PACK PO SCH (09:09)
[2019-12-05] MEDS: METHENAMINE HIPPURATE 1 GM TABLET PO SCH ×2 (09:11→21:10)
[2019-12-05] MEDS: ESTRADIOL 1 MG TABLET PO SCH (09:11)
[2019-12-05] MEDS: CYANOCOBALAMIN 500 MCG TABLET PO SCH (09:12)
[2019-12-05] MEDS: carvediloL 3.125 MG TABLET PO SCH ×2 (09:12→21:11)
[2019-12-05] MEDS: hydrALAZINE 25 MG TABLET PO SCH ×3 (09:12→21:12)
[2019-12-05] MEDS: MULTIVITAMIN (BEROCCA) TABLET PO SCH (09:12)
[2019-12-05] MEDS: ASPIRIN EC 81 MG TABLET PO SCH (09:12)
[2019-12-05] MEDS: PREGABALIN 100 MG CAPSULE PO SCH ×2 (09:13→21:12)
[2019-12-05] MEDS: DOCUSATE SODIUM 100 MG CAPSULE PO SCH ×2 (09:13→21:10)
[2019-12-05] MEDS: FERROUS SULFATE 325 MG TABLET PO SCH (09:13)
[2019-12-05] MEDS: POTASSIUM CHLORIDE 20 MEQ TABLET PO SCH ×2 (09:13→21:12)
[2019-12-05] MEDS: FUROSEMIDE 20 MG TABLET PO SCH (09:13)
[2019-12-05] MEDS: CHOLECALCIFEROL 1,000 UNIT TABLET PO SCH (09:13)
[2019-12-05] MEDS: PANTOPRAZOLE 40 MG VIAL IV SCH (09:31)
[2019-12-05] MEDS: methylPREDNISolone SOD SUC 40 MG/1 ML VIAL IV SCH ×2 (10:24→21:09)
[2019-12-05] MEDS: busPIRone 10 MG TABLET PO SCH (21:10)
[2019-12-05] MEDS: traZODone 50 MG TABLET PO SCH (21:11)
[2019-12-05] MEDS: LEVOFLOXACIN INJ 500 MG in PREMIX 1 EACH IV SCH (21:12)
[2019-12-06] MEDS: ALBUTEROL/IPRATROPIUM 3 ML NEB RESP TX SCH ×4 (00:15→19:23)
[2019-12-06 05:43] LABS: Basophils % 0.2 % (0.0-0.8); Hematocrit 38.1 VOL% (35.7-47.0); Hemoglobin 12.1 GM/DL (12.0-16.0); Immature Granulocytes % 0.6 %; Immature Granulocytes Absolute 0.09 #; Lymphocytes # 1.4 10*3/uL (1.4-4.0); Mean Corpuscular HGB Conc 31.8 GM/DL (32-36); Mean Platelet Volume 9.9 FL (9.6-12.0); Monocytes % 5.8 % (1.7-12.7); Neutrophils % 84.4 % (38.7-73.9); Platelet Count 337 T/CUMM (130-400); Red Blood Count 3.97 MC/CUMM (3.8-5.5); Red Cell Distribution Width 14.6 % (9.3-17.3); White Blood Count 15.5 T/CUMM (4-12)
[2019-12-06 06:10] LABS: Calcium 8.6 MG/DL (8.5-10.1); Osmolality,Calculated 276.5 MOS/KG (273-304)
[2019-12-06] MEDS: SODIUM CHLORIDE 0.9% 1,000 ML IV SCH ×3 (09:06→21:31)
[2019-12-06] MEDS: DOCUSATE SODIUM 100 MG CAPSULE PO SCH ×2 (09:06→21:14)
[2019-12-06] MEDS: hydrALAZINE 25 MG TABLET PO SCH ×3 (09:07→21:14)
[2019-12-06] MEDS: PANTOPRAZOLE 40 MG VIAL IV SCH (09:07)
[2019-12-06] MEDS: METHENAMINE HIPPURATE 1 GM TABLET PO SCH ×2 (09:07→21:14)
[2019-12-06] MEDS: POLYETHYLENE GLYCOL POWDER 17 GM PACK PO SCH (09:08)
[2019-12-06] MEDS: ASPIRIN EC 81 MG TABLET PO SCH (09:08)
[2019-12-06] MEDS: CYANOCOBALAMIN 500 MCG TABLET PO SCH (09:08)
[2019-12-06] MEDS: ESTRADIOL 1 MG TABLET PO SCH (09:09)
[2019-12-06] MEDS: POTASSIUM CHLORIDE 20 MEQ TABLET PO SCH ×2 (09:09→21:15)
[2019-12-06] MEDS: carvediloL 3.125 MG TABLET PO SCH ×2 (09:09→21:14)
[2019-12-06] MEDS: FERROUS SULFATE 325 MG TABLET PO SCH (09:09)
[2019-12-06] MEDS: PREGABALIN 100 MG CAPSULE PO SCH ×2 (09:09→21:15)
[2019-12-06] MEDS: methylPREDNISolone SOD SUC 40 MG/1 ML VIAL IV SCH ×2 (09:10→21:30)
[2019-12-06] MEDS: FUROSEMIDE 20 MG TABLET PO SCH (09:10)
[2019-12-06] MEDS: CHOLECALCIFEROL 1,000 UNIT TABLET PO SCH (09:10)
[2019-12-06] MEDS: MULTIVITAMIN (BEROCCA) TABLET PO SCH (09:11)
[2019-12-06] MEDS: busPIRone 10 MG TABLET PO SCH (21:14)
[2019-12-06] MEDS: traZODone 50 MG TABLET PO SCH (21:14)
[2019-12-06] MEDS: LEVOFLOXACIN INJ 500 MG in PREMIX 1 EACH IV SCH (21:29)
[2019-12-07] MEDS: ALBUTEROL/IPRATROPIUM 3 ML NEB RESP TX SCH ×4 (00:55→19:10)
[2019-12-07] MEDS: SODIUM CHLORIDE 0.9% 1,000 ML IV SCH ×2 (04:53→15:00)
[2019-12-07 06:08] LABS: Calcium 8.6 MG/DL (8.5-10.1); Osmolality,Calculated 272.8 MOS/KG (273-304)
[2019-12-07] MEDS: methylPREDNISolone SOD SUC 40 MG/1 ML VIAL IV SCH ×2 (09:00→21:41)
[2019-12-07 09:01] LABS: Basophils % 0.1 % (0.0-0.8); Eosinophils % 0.1 % (0.00-10.9); Hematocrit 35.9 VOL% (35.7-47.0); Hemoglobin 11.9 GM/DL (12.0-16.0); Immature Granulocytes % 0.7 %; Lymphocytes % 7.5 % (21.3-54.2); Mean Corpuscular HGB Conc 33.1 GM/DL (32-36); Mean Corpuscular Volume 91.6 FL (87-102); Monocytes % 4.5 % (1.7-12.7); Neutrophils % 87.1 % (38.7-73.9); Platelet Count 333 T/CUMM (130-400); Red Blood Count 3.92 MC/CUMM (3.8-5.5); Red Cell Distribution Width 14.8 % (9.3-17.3); White Blood Count 13.7 T/CUMM (4-12)
[2019-12-07] MEDS: ESTRADIOL 1 MG TABLET PO SCH (09:01)
[2019-12-07] MEDS: ASPIRIN EC 81 MG TABLET PO SCH (09:02)
[2019-12-07] MEDS: METHENAMINE HIPPURATE 1 GM TABLET PO SCH ×2 (09:02→21:42)
[2019-12-07] MEDS: POLYETHYLENE GLYCOL POWDER 17 GM PACK PO SCH (09:02)
[2019-12-07] MEDS: carvediloL 3.125 MG TABLET PO SCH ×2 (09:02→21:42)
[2019-12-07] MEDS: DOCUSATE SODIUM 100 MG CAPSULE PO SCH ×2 (09:02→21:43)
[2019-12-07] MEDS: PREGABALIN 100 MG CAPSULE PO SCH ×2 (09:03→21:42)
[2019-12-07] MEDS: hydrALAZINE 25 MG TABLET PO SCH ×3 (09:03→21:42)
[2019-12-07] MEDS: FUROSEMIDE 20 MG TABLET PO SCH (09:04)
[2019-12-07] MEDS: MULTIVITAMIN (BEROCCA) TABLET PO SCH (09:11)
[2019-12-07] MEDS: FERROUS SULFATE 325 MG TABLET PO SCH (09:12)
[2019-12-07] MEDS: POTASSIUM CHLORIDE 20 MEQ TABLET PO SCH ×2 (09:12→21:42)
[2019-12-07] MEDS: PANTOPRAZOLE 40 MG VIAL IV SCH (09:12)
[2019-12-07] MEDS: CHOLECALCIFEROL 1,000 UNIT TABLET PO SCH (09:12)
[2019-12-07] MEDS: CYANOCOBALAMIN 500 MCG TABLET PO SCH (09:12)
[2019-12-07] MEDS: LEVOFLOXACIN INJ 500 MG in PREMIX 1 EACH IV SCH (21:41)
[2019-12-07] MEDS: busPIRone 10 MG TABLET PO SCH (21:42)
[2019-12-07] MEDS: traZODone 50 MG TABLET PO SCH (21:42)
[2019-12-08] MEDS: ALBUTEROL/IPRATROPIUM 3 ML NEB RESP TX SCH ×4 (00:30→19:32)
[2019-12-08] MEDS: SODIUM CHLORIDE 0.9% 1,000 ML IV SCH ×3 (04:00→22:10)
[2019-12-08 06:34] LABS: Hematocrit 33.8 VOL% (35.7-47.0); Hemoglobin 11.1 GM/DL (12.0-16.0); Immature Granulocytes % 0.4 %; Immature Granulocytes Absolute 0.02 #; Lymphocytes # 0.4 10*3/uL (1.4-4.0); Lymphocytes % 9.5 % (21.3-54.2); Mean Corpuscular HGB Conc 32.8 GM/DL (32-36); Mean Corpuscular Volume 92.3 FL (87-102); Mean Platelet Volume 9.8 FL (9.6-12.0); Monocytes % 2.4 % (1.7-12.7); Neutrophils % 87.7 % (38.7-73.9); Platelet Count 326 T/CUMM (130-400); Red Blood Count 3.66 MC/CUMM (3.8-5.5); Red Cell Distribution Width 14.6 % (9.3-17.3); White Blood Count 4.5 T/CUMM (4-12)
[2019-12-08 06:48] LABS: Calcium 8.7 MG/DL (8.5-10.1); Osmolality,Calculated 280.5 MOS/KG (273-304)
[2019-12-08] MEDS: hydrALAZINE 25 MG TABLET PO SCH ×3 (09:24→21:24)
[2019-12-08] MEDS: CYANOCOBALAMIN 500 MCG TABLET PO SCH (09:24)
[2019-12-08] MEDS: ESTRADIOL 1 MG TABLET PO SCH (09:24)
[2019-12-08] MEDS: carvediloL 3.125 MG TABLET PO SCH ×2 (09:25→21:24)
[2019-12-08] MEDS: MULTIVITAMIN (BEROCCA) TABLET PO SCH (09:25)
[2019-12-08] MEDS: FERROUS SULFATE 325 MG TABLET PO SCH (09:25)
[2019-12-08] MEDS: CHOLECALCIFEROL 1,000 UNIT TABLET PO SCH (09:25)
[2019-12-08] MEDS: FUROSEMIDE 20 MG TABLET PO SCH (09:25)
[2019-12-08] MEDS: METHENAMINE HIPPURATE 1 GM TABLET PO SCH ×2 (09:25→21:25)
[2019-12-08] MEDS: PREGABALIN 100 MG CAPSULE PO SCH ×2 (09:25→21:24)
[2019-12-08] MEDS: DOCUSATE SODIUM 100 MG/10 ML UDCUP PO SCH ×2 (09:25→21:25)
[2019-12-08] MEDS: POTASSIUM CHLORIDE 20 MEQ TABLET PO SCH ×2 (09:25→21:25)
[2019-12-08] MEDS: POLYETHYLENE GLYCOL POWDER 17 GM PACK PO SCH (09:26)
[2019-12-08] MEDS: ASPIRIN EC 81 MG TABLET PO SCH (09:26)
[2019-12-08] MEDS: PANTOPRAZOLE 40 MG VIAL IV SCH (09:31)
[2019-12-08] MEDS: methylPREDNISolone SOD SUC 40 MG/1 ML VIAL IV SCH (09:53)
[2019-12-08] MEDS ORDERED: methylPREDNISolone SOD SUC 40 MG/1 ML VIAL IV SCH (10:00)
[2019-12-08] MEDS ORDERED: QUEtiapine 25 MG TABLET PO SCH (21:00)
[2019-12-08] MEDS: busPIRone 10 MG TABLET PO SCH (21:23)
[2019-12-08] MEDS: MEMANTINE 10 MG TABLET PO SCH (21:24)
[2019-12-08] MEDS: traZODone 50 MG TABLET PO SCH (21:24)
[2019-12-08] MEDS: LEVOFLOXACIN INJ 500 MG in PREMIX 1 EACH IV SCH (21:40)
[2019-12-09] MEDS: ALBUTEROL/IPRATROPIUM 3 ML NEB RESP TX SCH ×3 (00:24→12:30)
[2019-12-09 05:49] LABS: Eosinophils % 0.1 % (0.00-10.9); Hematocrit 30.7 VOL% (35.7-47.0); Immature Granulocytes % 0.4 %; Immature Granulocytes Absolute 0.03 #; Lymphocytes # 1.6 10*3/uL (1.4-4.0); Lymphocytes % 23.3 % (21.3-54.2); Mean Corpuscular HGB Conc 32.6 GM/DL (32-36); Mean Corpuscular Volume 91.6 FL (87-102); Mean Platelet Volume 9.5 FL (9.6-12.0); Monocytes % 8.9 % (1.7-12.7); Neutrophils % 67.3 % (38.7-73.9); Platelet Count 321 T/CUMM (130-400); Red Blood Count 3.35 MC/CUMM (3.8-5.5); Red Cell Distribution Width 14.6 % (9.3-17.3); White Blood Count 6.9 T/CUMM (4-12)
[2019-12-09 06:12] LABS: Calcium 8.6 MG/DL (8.5-10.1); Osmolality,Calculated 283.1 MOS/KG (273-304)
[2019-12-09] MEDS ORDERED: POTASSIUM CHLORIDE 20 MEQ TABLET PO PRN (08:18)
[2019-12-09] MEDS: CYANOCOBALAMIN 500 MCG TABLET PO SCH (09:37)
[2019-12-09] MEDS: ESTRADIOL 1 MG TABLET PO SCH (09:37)
[2019-12-09] MEDS: MULTIVITAMIN (BEROCCA) TABLET PO SCH (09:37)
[2019-12-09] MEDS: DOCUSATE SODIUM 100 MG/10 ML UDCUP PO SCH (09:37)
[2019-12-09] MEDS: CHOLECALCIFEROL 1,000 UNIT TABLET PO SCH (09:38)
[2019-12-09] MEDS: METHENAMINE HIPPURATE 1 GM TABLET PO SCH (09:38)
[2019-12-09] MEDS: ASPIRIN EC 81 MG TABLET PO SCH (09:38)
[2019-12-09] MEDS: FERROUS SULFATE 325 MG TABLET PO SCH (09:38)
[2019-12-09] MEDS: PREGABALIN 100 MG CAPSULE PO SCH (09:38)
[2019-12-09] MEDS: POTASSIUM CHLORIDE 20 MEQ TABLET PO SCH (09:38)
[2019-12-09] MEDS: FUROSEMIDE 20 MG TABLET PO SCH (09:39)
[2019-12-09] MEDS: hydrALAZINE 25 MG TABLET PO SCH (09:39)
[2019-12-09] MEDS: MEMANTINE 10 MG TABLET PO SCH (09:39)
[2019-12-09] MEDS: carvediloL 3.125 MG TABLET PO SCH (09:39)
[2019-12-09] MEDS: POLYETHYLENE GLYCOL POWDER 17 GM PACK PO SCH (09:42)
[2019-12-09] MEDS: PANTOPRAZOLE 40 MG VIAL IV SCH (09:42)
[2019-12-09] MEDS: SODIUM CHLORIDE 0.9% 1,000 ML IV SCH (10:16)
[2019-12-09 12:39] VITALS: BP 138/63
== END 2019-12-09 13:46 | disposition swing bed (61) | DRG 689 ==
LOC: EDUNIT# → N.ED 21:27 → N.EDINP 23:41 → N.TELES 12-05 00:14
PROVIDERS: ADMIT Internal Medicine; ATTEND Internal Medicine